=== PATIENT | female | born 1990 | race Caucasian/White ===

== ENCOUNTER 2021-01-14 10:09 | Emergency (ER) | payer OTHER ==
[~2021-01-14] VITALS: Ht 160 cm; Wt 97.5 kg
[2021-01-14 10:28] VITALS: BP 142/81
--- NOTE | 2021-01-14 10:36 | NUR ---
NURSERY TECHNICIAN AT BEDSIDE
--- NOTE | 2021-01-14 10:40 | NUR ---
TO ER BED 1, C/O PAIN 12/03, LT ANKLE SWELLING S/P FALL YESTERDAY, AAOX4, BREATHING EVEN AND NON LABORED.
[2021-01-14] MEDS ORDERED: IBUP-1955 PO (11:17)
[2021-01-14] MEDS ORDERED: IBUPROFEN 600 MG TABLET ONE (11:20)
[2021-01-14] MEDS ORDERED: IBUPROFEN 600 MG TABLET PO ONE (11:30)
== END 2021-01-14 11:30 | disposition home or self-care (01) ==
LOC: ER 10:18
DX: S93.492A Sprain of other ligament of left ankle, initial encounter (principal); R26.9 Unspecified abnormalities of gait and mobility; X50.1XXA Overexertion from prolonged static or awkward postures, initial encounter; Y93.89 Activity, other specified; Y92.89 Other specified places as the place of occurrence of the external cause; Y99.8 Other external cause status
CPT/HCPCS: 73600-TC

== ENCOUNTER 2021-04-09 14:49 | Emergency (ER) | payer OTHER ==
[~2021-04-09] VITALS: Ht 160 cm; Wt 97.5 kg
[~2021-04-09 14:49] MED LIST: IBUP-1955 PO
--- NOTE | 2021-04-09 14:58 | NUR ---
PT BIBSELF C/O LEFT KNEE PAIN/SWELLING,STS,DISLOCATED HER PATELLA WHILE DANCING 4 DAYS AGO
[2021-04-09] MEDS ORDERED: IBUP-1957 PO (17:50)
--- NOTE | 2021-04-09 18:05 | NUR ---
Patient discharged to home in stable condition. rx Written and verbal after care instructions given. Patient verbalizes understanding of instruction. pt ambulatory with a steady gait
[2021-04-09 18:51] VITALS: BP 123/81
== END 2021-04-09 18:07 | disposition home or self-care (01) ==
LOC: ER 14:50
DX: M25.562 Pain in left knee (principal); X50.0XXA Overexertion from strenuous movement or load, initial encounter; Y93.41 Activity, dancing; Y92.89 Other specified places as the place of occurrence of the external cause; Y99.8 Other external cause status
CPT/HCPCS: 73564-TC; 93971-TC